=== PATIENT | male | born 1990 | race Asian ===

== ENCOUNTER 2023-02-17 15:52 | Emergency (ER) | payer OTHER ==
[2023-02-17] MEDS ORDERED: IBUPROFEN 800 MG TABLET PO STA (15:53)
--- NOTE | 2023-02-17 15:54 | ED Physician Documentation ---
PD HPI UPPER EXT INJURY - Stated complaint Stated Complaint: HAND INJ - History obtained from History obtained from: Patient - Additonal information Additional information: 32-year-old gentleman who is active duty in the [employer]. He is right-handed. He got his left hand, nondominant side caught between 2 pieces of equipment while working just prior to arrival. Pain is moderate. No other injuries. PD PAST MEDICAL HISTORY - Allergies Allergies/Adverse Reactions: Allergies Allergy/AdvReac Type Severity Reaction Status Date / Time No Known Drug Allergies Allergy Verified 02/17/23 15:54 PD ED PE NORMAL - Vitals Vital signs reviewed: Yes - General General: Alert and oriented X 3, No acute distress - Extremities Extremities: Other (Modest tenderness in the third through fifth metacarpals with some potential rotation of the pinky finger but no pain with movement of the pinky finger.) - Neuro Neuro: Alert and oriented X 3, Normal speech - Psych Psych: Normal mood, Normal affect Results - Vitals Vitals: Vital Signs - 24 hr 02/17/23 15:55 Temperature 36.5 C Heart Rate 70 Respiratory 18 Rate Blood Pressure 140/90 H O2 Saturation 99 Oxygen O2 Source Room air - Rads (name of study) Three-view x-ray left hand negative for fracture Relevant Findings:: Final report received, EMP independent interpretation of test Departure - Departure Disposition: 01 Home, Self Care Clinical Impression: Crushing injury of left hand Condition: Good Record reviewed to determine appropriate education?: Yes Instructions: ED Contusion Hand Comments: X-rays are looking normal. Tylenol and/or ibuprofen as needed for pain. You can use ice as well. Also elevate it. 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 Return for new or worsening symptoms. Forms: Activity restrictions
[2023-02-17 16:02] VITALS: BP 140/90; O2SAT 99
--- NOTE | 2023-02-17 16:13 | XRAY Report ---
PROCEDURE: Hand 3 View LT INDICATIONS: hand inj TECHNIQUE: 3 views of the hand(s) acquired. COMPARISON: None. FINDINGS: Evaluation on lateral view is mildly limited secondary to patient positioning. Bones: No fractures or dislocations. Joint spaces are maintained. No suspicious bony lesions. Soft tissues: No suspicious soft tissue calcifications or masses. No radiopaque foreign body. IMPRESSION: No acute bony abnormality. If there is high clinical suspicion for a radiographically occult fracture , consider repeat imaging in 7-10 days versus cross-sectional imaging. Reviewed by: Baldemar Ramírez MD on 02/17/2023 4:12 PM PST Approved by: Baldemar Ramírez MD on 02/17/2023 4:12 PM PST Station ID: [id number]
== END 2023-02-17 16:40 | disposition home or self-care (01) ==
LOC: ED 15:52
DX: S69.92XA Unspecified injury of left wrist, hand and finger(s), initial encounter (principal); W31.9XXA Contact with unspecified machinery, initial encounter
CPT/HCPCS: 73130; 99282; 99283; A9270

== ENCOUNTER 2023-05-26 12:15 | Outpatient (CLI) | payer OTHER ==
--- NOTE | 2023-05-26 13:32 | XRAY Report ---
PROCEDURE: Ankle 3+V LT INDICATIONS: SPRAIN OF UNSPECIFIED LIGAMENT OF LEFT ANKLE TECHNIQUE: 3 views of the ankle were acquired. COMPARISON: None. FINDINGS: Bones: No fractures or dislocations. Ankle mortise is normally aligned. No suspicious bony lesions . Soft tissues: No tibiotalar joint effusion. Achilles tendon appears normal. IMPRESSION: No acute bony abnormality. If pain persists with conservative management, consider repeat x-ray in 10 -14 days or cross-sectional imaging. Reviewed by: Gerardo Castillo MD on 05/26/2023 1:30 PM PDT Approved by: Gerardo Castillo MD on 05/26/2023 1:30 PM PDT Station ID: [id number]
== END 2023-05-26 12:30 | disposition home or self-care (01) ==
LOC: DI.N 12:15
PROVIDERS: ATTEND Physician Assistant
DX: S93.402A Sprain of unspecified ligament of left ankle, initial encounter (principal)